=== PATIENT | female | born 1970 | race Caucasian/White ===

== ENCOUNTER 2025-01-14 14:57 | Emergency (ER) | payer OTHER, SELFPAY ==
[2025-01-14 15:00] VITALS: BP 141/80
[2025-01-14 15:27] LABS: % Basophils 0.4 % (0-2); % Eosinophils 0.8 % (0-6); % Immature Granulocytes 0.4 % (0-0.5); % Lymphocytes 26.4 % (20.5-51.1); % Monocytes 6.9 % (1.7-9.3); % Neutrophils 65.1 % (42.2-75.2); Absolute Eosinophils 0.1 10^3/uL (0-0.7); Absolute Monocytes 0.5 10^3/uL (0.1-0.6); Absolute Neutrophils 4.9 10^3/uL (1.4-6.5); Hematocrit 41.8 % (37.0-47.0); Hemoglobin 14.7 g/dL (12.0-16.0); Mean Corp Hgb Conc. 35.2 g/dL (33.0-37.0); Mean Corpuscular Hgb 32.3 pg (27.0-31.0); Mean Corpuscular Volume 91.9 fL (81.0-99.0); Nucleated Red Blood Cells % 0 %; Platelet Count 228 10^3/uL (130-400); Red Blood Cell Count 4.55 10^6/uL (4.20-5.40); Red Cell Dist. Width 11.9 % (11.5-14.5); White Blood Cell Count 7.5 10^3/uL (4.8-10.8)
[2025-01-14 15:41] LABS: ALT (SGPT) 21 U/L (0-35); AST (SGOT) 23 U/L (14-36); Albumin 4.9 g/dl (3.5-5.0); Alkaline Phosphatase 85 U/L (38-126); Blood Urea Nitrogen 20 mg/dl (7-17); Calcium 10.1 mg/dl (8.4-10.2); Carbon Dioxide 23 mmol/L (22-30); Chloride 107 mmol/L (98-107); Glucose 109 mg/dl (70-99); Lipase 62 U/L (23-300); Potassium 4.1 mmol/L (3.5-5.1); Sodium 139 mmol/L (135-145); Total Bilirubin 0.5 mg/dl (0.2-1.3); Total Protein 7.6 g/dl (6.3-8.2); eGFR > 60.00
--- NOTE | 2025-01-14 17:14 | ED.GENMED ---
History of Present Illness
General
Chief Complaint: Abdominal Symptoms
Source: patient
Exam Limitations: none
Time Seen by Provider: 01/14/25 16:14
Nursing documentation reviewed up to this point in time: agreed with
History of Present Illness
History of Present Illness:
Patient is a 54-year-old female with a history of celiac disease presents to the ER for evaluation. She reports she started buckwheat back in September and October which does not have celiac but she tried to increase her fiber and for the past 10 days
she has noticed undigested food in her stool and some mild burning in her abdomen and over the past 5 days her stools have been very mushy which is what prompted patient to come to the ER . She does reports they are yellow /mucousy at times as
well. She denies any blood in stools .she does feel that this is a typical celiac flare for her.
She is new to the area from [place] and is scheduled for her first primary care appointment March 2025 and also has an appointment with celiac center at [place] in March
Because she has not seen a provider yet here in area she is here in the ER
She denies any nausea vomiting fever chills. She denies any abdominal pain.
Review of Systems
Review of Systems
Allergies reviewed?: Yes
All Other Systems: ROS reviewed and negative except as documented in HPI and ROS
Constitutional: Reports no symptoms; Denies fever, fatigue or chills
ABD/GI: Reports diarrhea and other (Mild abdominal burning); Denies nausea or vomiting
: Reports no symptoms
Musculoskeletal: Reports no symptoms
Psychiatric: Reports no symptoms
Phy Exam
General Physical Exam
General Presentation: no apparent distress
General age: appears stated age
General Skin: warm and dry
General Habitus: normal
General Mental: alert
General Hydration: appears well hydrated
Gastrointestinal Exam
Gastrointestinal Exam: non tender and soft
Neurological Exam
Neurological Exam: alert and oriented x3
Musculoskeletal Exam
Musculoskeletal Exam: full ROM
Skin Exam
Skin Exam: normal color and warm/dry
Psychiatric Exam
Psychiatric Exam: normal mood/affect
Course
Orders/Labs/Results
Orders:
Orders
01/14/25 15:12
CMP [Comprehensive Metabolic Panel] Urgent
Complete Blood Count/With Diff Urgent
Lipase Urgent
Abnormal Lab Results
01/14/25
15:12
MCH 32.3 H pg
(27.0-31.0)
MPV 11.0 H fL
(7.4-10.4)
BUN 20 H mg/dl
(7-17)
Glucose 109 H mg/dl
(70-99)
01/14/25 15:12
01/14/25 15:12
Vital Signs
Initial and Last Documented VS:
Initial Vital Signs
Temp Pulse Resp BP Pulse Ox
98.5 F 117 20 141/80 94
01/14/25 15:00 01/14/25 15:00 01/14/25 15:00 01/14/25 15:00 01/14/25 15:00
Last Documented Vital Signs
Temp Pulse Resp BP Pulse Ox
98.5 F 117 20 141/80 94
01/14/25 15:00 01/14/25 15:00 01/14/25 15:00 01/14/25 15:00 01/14/25 15:00
MDM/Problems Addressed
MDM/Problems Addressed:
As documented patient has celiac disease started buckwheat in September and now has had some mushy stools with undigested food. She had some mild burning in her abdomen and has no provider here in the area yet which prompted her to come to the
ER. She presents awake alert no acute distress abdomen is soft and nontender she is drinking fluids and eating. Labs reviewed BUN very minimally elevated however all other labs are normal and again as documented on exam she has no tenderness to
palpation to her abdomen. She is well-appearing. She did mention the possibility of steroids as she had steroids in the past for celiac however I did review this with GI, and he has never seen steroids used for celiac would discharge
her with supportive care Imodium if needed and importantly avoiding gluten she has stopped the buckwheat for the past 24 hours.
We discussed the possibility of CAT scan however she is nontender and has anaphylaxis allergy to IV contrast and would like to hold off. I do think this is reasonable because she is nontender on exam and well-appearing with a normal white count. I
will give her family practice clinic since she does not have a doctor in the area and she is scheduled to see her specialist in March. I did suggest her to give them a call to see if she can get an earlier appointment. She is to return if any
worsening of symptoms.
*Pulse Oximetry
Patient hypoxic: no
*Critical Care Note
Total Time (30-74mins, 75-104mins- exclusive of procedures): Not Applicable
ED Attending Note
-
Portions of this chart may have been created with voice recognition software.� Occasional wrong word or��sound alike� substitutions may have occurred due to the inherent limitations of voice recognition software.
Discharge Plan
Departure
Patient Disposition: Home (Routine Discharge)
Date of Disposition: 01/14/25
Time of Disposition: 17:37
Patient with high blood pressure during this ER visit?: Yes
Condition: Fair
Covid-19: Not Applicable
Discharge Problem:
Diarrhea
Instructions: Diarrhea in teens and adults, Abdominal Pain
Referrals:
[facility] [Provider Group]
[facility] [Outside]
Activity Restrictions/Additional Instructions:
As discussed stay well-hydrated. Continue to avoid gluten. [place] diet. You may take Imodium if needed.
Please increase fluid intake.
Follow-up with family practice clinic in the next several days for reevaluation of your symptoms. Follow-up with your specialist as scheduled. You may try to call for an earlier appointment. Return if any worsening of symptoms if abdominal pain
fevers or any further concerns.
Interventions
Interventions:
*Risk Screen - Suicide Last Done: 01/14/25 15:09
*Neglect/Abuse Screening Last Done: 01/14/25 15:09
*ED- Fall Risk Assessment Last Done: 01/14/25 16:42
SJ-[id number]-Nnkxeilhgc Assessment Last Done: 01/14/25 16:42
Discharge Date and Time
Print Language: SAUDI ARABIAN
[2025-01-14 17:40] VITALS: BP 132/70
== END 2025-01-14 18:54 | disposition home or self-care (01) ==
LOC: EMR 14:57
PROVIDERS: Student in an Organized Health Care Education/Training Program; EMERGENCY PHYSICIAN Emergency Medicine
DX: R19.7 Diarrhea, unspecified (principal); K90.0 Celiac disease
CPT/HCPCS: 99283; 80053; 83690; 85025